=== PATIENT | male | born 1970 | race Caucasian/White ===

== ENCOUNTER 2020-03-30 12:33 | Observation (INO) | payer MEDICARE ==
[2020-03-30 14:01] VITALS: BMI 24.4
[2020-03-30] MEDS ORDERED: Nitroglycerin 0.4 MG TAB (25 Tab Bottle) PO PRN (15:32)
[2020-03-30] MEDS ORDERED: Bisacodyl 10 MG SUPP PR PRN (15:40)
[2020-03-30] MEDS ORDERED: Acetaminophen 325 MG TAB PO PRN (15:40)
[2020-03-30] MEDS ORDERED: Calcium Carbonate 500 MG ChewTAB PO PRN (15:40)
[2020-03-30] MEDS ORDERED: Ondansetron ODT 4 MG TAB PO PRN (15:40)
[2020-03-30] MEDS ORDERED: Senokot S 8.6-50 MG TAB PO PRN (15:40)
[2020-03-30] MEDS ORDERED: Ondansetron PF 4 MG/2 ML Vial IVP PRN (15:40)
[2020-03-30 16:08] LABS: Troponin I 0.063 ng/mL (< 0.028)
[2020-03-30] MEDS ORDERED: Mag-Al 1200 mg/1200 mg/30 ML UDCUP PO PRN (18:27)
[2020-03-30] MEDS ORDERED: Dextrose 5 %-0.45 % NaCl 1,000 ML IV SCH (18:30)
[2020-03-30] MEDS ORDERED: Mag-Al 1200 mg/1200 mg/30 ML UDCUP PO SCH (18:30)
[2020-03-30] MEDS ORDERED: Cyclobenzaprine 10 MG TAB PO PRN (19:04)
--- NOTE | 2020-03-30 19:21 | HP ---
PRIMARY CARE PHYSICIAN: Juan Hardy. CHIEF COMPLAINT: Nausea. HISTORY OF PRESENT ILLNESS: The patient is a 49-year-old male, with bipolar disorder and schizophrenia, presented to the emergency room with above complaints. The patient presented to [facility] with nausea and bad taste that has been ongoing for a week or so. He also had some heartburn and intermittent vomiting. He thinks that somebody is trying to poison him. He states that he was recently tested for COVID and was negative. He has been feeling generally weak and dizzy on and off for last few days. He lives in a trailer at his mother's property. However, over the last 5 days, he has been living in motels due to paranoia of somebody poisoning him. He is also hearing voices. He states that his symptoms started after smoking cigarettes, which were mixed with formaldehyde. In the emergency room at [facility], his EKG showed sinus rhythm. He was found to have indeterminate troponin. For this reason, he was transferred to this facility for Cardiology evaluation. Contact number for mother per ER record is, area code [phone]. The patient has been hearing voices. He denies any suicidal or homicidal ideation. PAST MEDICAL HISTORY: Bipolar disorder, schizophrenia, however, the patient is declining this and degenerative joint disease. PAST SURGICAL HISTORY: Right shoulder surgery. ALLERGIES: NO KNOWN DRUG ALLERGIES. CURRENT HOME MEDICATION: Flexeril as needed. SOCIAL HISTORY: The patient abuses cannabis on and off. He smokes cigarettes on a daily basis for last 30 years up to 1-1/2 pack a day. FAMILY HISTORY: Negative for heart disease. REVIEW OF SYSTEMS: All other review of systems were reviewed and were found negative. PHYSICAL EXAMINATION: VITAL SIGNS: In the emergency room showed temperature 97.4, respirations 20, pulse rate of 95 with blood pressure 155/100, and O2 saturation 97% on room air. Repeat blood pressure was 123/84. GENERAL: A 49-year-old male, anxious, in no apparent distress. HEENT: Head, atraumatic and normocephalic. Sclerae are anicteric. Moist mucous membranes. No oral lesion. White patches noted over the upper palate. NECK: Supple. No JVD appreciated. No carotid bruit. LUNGS: Clear to auscultation bilaterally. HEART: S1 and S2 present. Regular rate and rhythm. No rubs or gallops. ABDOMEN: Soft, nontender. Bowel sounds present. EXTREMITIES: No edema or calf tenderness. NEUROLOGY: Grossly nonfocal. Moves all 4 extremities. PSYCHIATRY: Alert, awake, and oriented x3. SKIN: Warm and dry. LYMPH NODES: No palpable lymph nodes in the neck. PERIPHERAL: Vascular and radial pulses palpable bilaterally. MUSCULOSKELETAL: No joint swelling or tenderness. LABORATORY FINDINGS: Troponin maximum of 0.063. TSH was normal. Electrolytes in normal range. Creatinine 0.96, sodium 141, and potassium 4.0. CBC showed WBC 7.3 with hemoglobin 14.1, hematocrit 45.3, platelet 196. Urinalysis was negative for wbc and bacteria. It showed some ketones. Urine drug screen was positive for tricyclics and cannabinoid. IMPRESSION: 1. Near-syncope with elevated troponin, rule out cardiogenic etiology. 2. Suspected oral thrush. 3. Untreated bipolar and schizophrenia with ongoing hallucinations. 4. Degenerative joint disease. 5. Tobacco dependence. 6. Cannabis abuse. PLAN: The patient will be monitored in the telemetry unit. Echocardiogram will be obtained. We will start him on banana bag. Due to untreated bipolar disorder and schizophrenia, we will start him on low-dose Seroquel. We will also start him on Flexeril, which is his home medication. Repeat serial troponins in a.m. We will consult Cardiology per the patient's request. The patient understands the above plan of care. Job ID: [id number]
[2020-03-30] MEDS ORDERED: Multivitamins, Adult 10 ML, Folic Acid 1 MG, Thiamine HCl 100 MG in Dextrose 5 %-0.45 %... IV SCH (20:00)
[2020-03-30] MEDS: Nystatin 500,000 UNITS/5 ML UDCUP SSW SCH (20:16)
[2020-03-30] MEDS ORDERED: Cyclobenzaprine 10 MG TAB PO SCH (21:00)
[2020-03-31 05:06] LABS: CKMB 1.5 ng/mL (0-6.6)
[2020-03-31] MEDS: Nystatin 500,000 UNITS/5 ML UDCUP SSW SCH ×2 (08:59→14:12)
[2020-03-31] MEDS ORDERED: Aspirin 325 mg Enteric Coated Tablet PO SCH (09:00)
[2020-03-31] MEDS ORDERED: Multivit, Therapeutic 1 TAB PO SCH (09:00)
[2020-03-31 11:52] VITALS: TEMP 98.7
--- NOTE | 2020-03-31 14:41 | DIS ---
DATE OF ADMISSION: 03/30/2020 DATE OF DISCHARGE: 03/31/2020 DISCHARGE DISPOSITION: Home. FOLLOWUP: 1. Follow up with primary care physician at [facility] in 1 week. 2. Follow up with Cardiology, Dr. Sevilla, as outpatient. The patient was seen on the day of discharge. Denies any new complaints. No chest pain, shortness of breath, or palpitations reported. Symptomatically, he feels much better. Vital signs showed temperature 98.7, pulse of 73, blood pressure of 136/89 with O2 saturations 98% on room air. BRIEF HOSPITAL COURSE: The patient is a 49-year-old male with bipolar disorder and schizophrenia, presented to the emergency room with lightheadedness along with nausea and abnormal taste. Please refer to the history and physical for further details. The patient was admitted to the hospital with a diagnosis of near-syncope with indeterminate troponins. The patient was evaluated by Cardiology, Dr. Sevilla. His troponin maximum was 0.063. Echocardiogram showed ejection fraction of 50% to 55% with normal diastolic dysfunction, mild tricuspid regurgitation, mild mitral regurgitation. He is chest pain free. At this time.,He has been ambulating in the hallway. He was also evaluated by [facility], who will follow up the patient as outpatient. He has been cleared by Cardiology for discharge. FINAL DIAGNOSES: 1. Near syncope. 2. Mildly elevated troponins in the indeterminate range. 3. Cannabis abuse. 4. Untreated bipolar and schizophrenia with ongoing hallucinations. 5. Degenerative joint disease. 6. Suspected oral thrush, the patient declined medications. 7. Degenerative joint disease. 8. Tobacco dependence. 9. Cannabis abuse. The patient understands the above plan of care. Job ID: [id number]
--- NOTE | 2020-03-31 14:46 | CON ---
DATE OF CONSULTATION: 03/31/2020 REASON FOR CONSULTATION: Intermediate troponins. HISTORY OF PRESENT ILLNESS: Mr. Briceno is a pleasant 49-year-old white gentleman, who comes to the hospital for thinking that he had been poisoned. He apparently has a history of bipolar disorder and schizophrenia. He was evaluated by [facility] during this admission and he was diagnosed with acute carla. He was told that his cardiac enzymes were abnormal, so he is demanding Cardiology consultation. On my evaluation, Mr. Briceno denies any chest pain, tightness, or pressure. No shortness of breath. He does smoke, but he states he feels just fine except that he felt that he had been poisoned. Denies suicidal or homicidal ideations. PAST MEDICAL HISTORY: 1. Bipolar disorder. 2. Schizophrenia. PAST SURGICAL HISTORY: Right shoulder surgery. ALLERGIES: NO KNOWN DRUG ALLERGIES. OUTPATIENT MEDICATIONS: Only Flexeril as needed. SOCIAL HISTORY: Uses marijuana. Smokes about a pack and half a day for last 30 years. No alcohol. FAMILY HISTORY: No early coronary artery disease. REVIEW OF SYSTEMS: A 12-point review of systems was done and was all negative unless stated in the history of present illness. PHYSICAL EXAMINATION: VITAL SIGNS: Temperature 98.7, pulse 73, respiratory rate 14, saturating 98% on room air, blood pressure 136/89. GENERAL: Awake, alert, and oriented x3, in no distress. HEENT: Normocephalic and atraumatic. NECK: Supple. LUNGS: Have expiratory wheezes. CARDIOVASCULAR: S1 and S2. No S3 or S4. No murmurs. ABDOMEN: Soft. Positive bowel sounds. EXTREMITIES: No edema. SKIN: Warm and dry. LABORATORY DATA: Laboratory work was reviewed. Of note, just a troponin of 0.06 and 0.05 with normal CK-MB. White count of 7, hemoglobin of 14, hematocrit 45, and platelet count of 196. Rest of the metabolic profile was completely normal. BNP was undetectable. TSH was normal. Toxicology was positive for cannabis and tricyclic antidepressants. IMAGING STUDIES: Chest x-ray showed no acute cardiopulmonary issues. Echocardiogram was reviewed, normal EF, slightly elevated right-sided pressures consistent with his smoking, likely some level of COPD already there. ASSESSMENT: 1. Acute carla. 2. Indeterminate troponins, but asymptomatic. PLAN: 1. Currently, we would be prohibitive to do any type of stress testing or heart catheterization given his acute carla. I would recommend treating that medically. Family has been advised about this, whether he needs admission for this carla or not or least some sort of treatment. [facility] has already evaluated. 2. From my perspective, he is not having an acute coronary syndrome as he is completely asymptomatic and his troponins are just ranging in the indeterminate range. Echocardiogram was unremarkable as well. We would benefit from further risk stratification with a stress test in the near future, but not during an acute carla attack. 3. From the cardiac perspective, no further evaluations warranted until his carla has improved. Thank you for letting us participate in the care of this patient. We will follow sign off. Please call with any questions. Job ID: [id number]
[2020-03-31 15:25] VITALS: BP 133/84
== END 2020-03-31 15:26 | disposition home or self-care (01) ==
LOC: 2NO 12:33
PROVIDERS: ADMIT Internal Medicine; ATTEND Internal Medicine
DX: R55 Syncope and collapse (principal); R11.0 Nausea; R79.89 Other specified abnormal findings of blood chemistry; F12.10 Cannabis abuse, uncomplicated; F31.9 Bipolar disorder, unspecified; F20.9 Schizophrenia, unspecified; M19.90 Unspecified osteoarthritis, unspecified site; F17.210 Nicotine dependence, cigarettes, uncomplicated
CPT/HCPCS: 36415; 82553; 84484; 93306; 94760; 96365; 96366; 96376; G0378; J2405; J3411; J7042